=== PATIENT | female | born 1970 | race African-American/Black ===

== ENCOUNTER 2018-01-30 16:24 | Emergency (ER) | payer MEDICAID ==
[~2018-01-30] VITALS: Ht 154.9 cm; Wt 65.0 kg
[2018-01-30 16:56] VITALS: BP 118/73
== END 2018-01-30 20:36 | disposition left against medical advice (07) ==
LOC: ER 16:24
DX: R51 Headache (principal); R11.0 Nausea
CPT/HCPCS: 99281